=== PATIENT | male | born 1935 | race Caucasian/White ===

== ENCOUNTER 2018-05-20 18:11 | Emergency (ER) | payer MEDICARE, OTHER ==
[2018-05-20] MEDS: MORPHINE 4 MG/ML 1ML VIAL/SYRINGE (J2270) IV (19:15)
[2018-05-20 19:27] LABS: HEMATOCRIT 40.6 % (42.0-52.0); MEAN CORPUSCULAR HEMOGLOBIN 31.3 pg (27.0-33.0); MEAN CORPUSCULAR HGB CONC 34.5 g/dl (32.0-36.5); MEAN CORPUSCULAR VOLUME 90.6 fl (80.0-96.0); PLATELET COUNT, AUTOMATED 220 10^3/uL (150-450); RED BLOOD COUNT 4.48 10^6/uL (4.30-6.10)
[2018-05-20] MEDS: NS 1,000 ML IV (19:30)
[2018-05-20] MEDS: LIDOCAINE 1% MDV INJ 50 ML VIAL SC (19:45)
[2018-05-20 19:46] LABS: ANION GAP 7 MEQ/L (8-16); BLOOD UREA NITROGEN 18 MG/DL (7-18); CALCIUM LEVEL 8.1 MG/DL (8.8-10.2); CARBON DIOXIDE LEVEL 28 MEQ/L (21-32); CHLORIDE LEVEL 109 MEQ/L (98-107); CREATININE FOR GFR 1.15 MG/DL (0.70-1.30); GLOMERULAR FILTRATION RATE > 60.0 (>35); GLUCOSE, FASTING 109 MG/DL (70-100); POTASSIUM SERUM 3.4 MEQ/L (3.5-5.1); SODIUM LEVEL 144 MEQ/L (136-145)
[2018-05-20] MEDS ORDERED: LIDOCAINE 1% MDV 20ML VIAL As Ordered (19:56)
== END 2018-05-21 00:23 | disposition home or self-care (01) ==
LOC: M ED 05-21 00:23
DX: S52.531A Colles' fracture of right radius, initial encounter for closed fracture (principal); W10.8XXA Fall (on) (from) other stairs and steps, initial encounter; Y92.098 Other place in other non-institutional residence as the place of occurrence of the external cause; I10 Essential (primary) hypertension; K21.9 Gastro-esophageal reflux disease without esophagitis; E78.00 Pure hypercholesterolemia, unspecified; Z87.891 Personal history of nicotine dependence; Z79.899 Other long term (current) drug therapy
CPT/HCPCS: J2270

== ENCOUNTER 2019-03-18 00:06 | Emergency (ER) | payer MEDICARE, OTHER ==
[~2019-03-18] VITALS: Ht 170.2 cm; Wt 97.7 kg
[2019-03-18] MEDS ORDERED: NS 1,000 ML IV ONE (00:30)
[2019-03-18] MEDS ORDERED: METOCLOPRAMIDE INJ 10MG/2ML VIAL (J2765) IV ONE (00:30)
[2019-03-18 01:25] LABS: BASO % 0.2 % (0.0-1.0); EOS % 0.2 % (0.0-3.0); HEMATOCRIT 41.6 % (42.0-52.0); HEMOGLOBIN 14.3 g/dl (13.5-17.5); LYMPH # 0.5 10^3/uL (1.5-4.5); LYMPH % 4.4 % (24.0-44.0); MEAN CORPUSCULAR HEMOGLOBIN 31.6 pg (27.0-33.0); MEAN CORPUSCULAR HGB CONC 34.4 g/dl (32.0-36.5); MEAN CORPUSCULAR VOLUME 91.8 fl (80.0-96.0); MONO # 0.2 10^3/uL (0.0-0.8); MONO % 1.6 % (0.0-5.0); NEUTROPHILS % 93.3 % (36.0-66.0); PLATELET COUNT, AUTOMATED 185 10^3/uL (150-450); RED BLOOD COUNT 4.53 10^6/uL (4.30-6.10); WHITE BLOOD COUNT 11.8 10^3/uL (4.0-10.0)
[2019-03-18 01:42] LABS: ALBUMIN 3.4 GM/DL (3.2-5.2); ALT/SGPT 136 U/L (12-78); BILIRUBIN,DIRECT 1.1 MG/DL (0.0-0.2); BILIRUBIN,TOTAL 1.9 MG/DL (0.2-1.0); BLOOD UREA NITROGEN 20 MG/DL (7-18); CALCIUM LEVEL 8.2 MG/DL (8.8-10.2); CARBON DIOXIDE LEVEL 26 MEQ/L (21-32); CHLORIDE LEVEL 109 MEQ/L (98-107); CPK CREATINE PHOSPHOKINASE 160 U/L (39-308); CREATININE FOR GFR 1.34 MG/DL (0.70-1.30); GLOMERULAR FILTRATION RATE 54.2 (>35); GLUCOSE, FASTING 100 MG/DL (70-100); LIPASE 83 U/L (73-393); MB/CK RELATIVE INDEX 0.94 (< OR =4); POTASSIUM SERUM 3.5 MEQ/L (3.5-5.1); SODIUM LEVEL 145 MEQ/L (136-145); TOTAL PROTEIN 7.2 GM/DL (6.4-8.2); TROPONIN I < 0.02 NG/ML (< 0.10)
[2019-03-18 02:08] VITALS: BP 102/51
--- NOTE | 2019-03-18 03:10 | REPVR ---
EXAM: US Abdomen Limited, Right Upper Quadrant EXAM DATE/TIME: 03/18/2019 2:09 AM CLINICAL HISTORY: 84 years old, male; Abdominal pain; Epigastric; Additional info: Biliary eval TECHNIQUE: Imaging protocol: Real-time ultrasound of the abdomen with image documentation. Examination was focused on the right upper quadrant. COMPARISON: No relevant prior studies available. FINDINGS: Liver: The liver is mildly echogenic and is attenuating. Gallbladder: The gallbladder demonstrates no wall thickening measuring 3 mm. Internal gallstones and possible sludge are noted. There is a negative sono Dixon's sign. Common bile duct: The CBD measures 5 mm. Pancreas: The pancreas is not seen due to gas shadowing. Right kidney: The right kidney is normal measuring 10.1 cm. IMPRESSION: 1. Fatty infiltration of the liver. 2. Cholelithiasis and question of sludge. There is no gallbladder wall thickening and a negative sono Dixon's sign. Electronically signed by: Ruel Pierre On 03/18/2019 03:10:18 AM
== END 2019-03-18 03:41 | disposition home or self-care (01) ==
LOC: M ED 00:06
DX: K52.9 Noninfective gastroenteritis and colitis, unspecified (principal); E66.9 Obesity, unspecified; I10 Essential (primary) hypertension; K21.9 Gastro-esophageal reflux disease without esophagitis; K76.0 Fatty (change of) liver, not elsewhere classified; K80.20 Calculus of gallbladder without cholecystitis without obstruction
CPT/HCPCS: 36415; 76705; 80048; 80076; 82550; 82553; 83690; 84484; 85025; 99284; J2765

== ENCOUNTER 2020-02-18 02:49 | Emergency (ER) | payer MEDICARE, OTHER ==
[~2020-02-18] VITALS: Ht 170.2 cm; Wt 95.5 kg
[2020-02-18] MEDS ORDERED: METO1TAB7 PO (02:58)
[2020-02-18] MEDS ORDERED: HYDR25TAB PO (02:58)
[2020-02-18] MEDS ORDERED: AMLO25TA PO (02:58)
[2020-02-18] MEDS ORDERED: PRAV20TA2 PO (02:58)
[2020-02-18] MEDS ORDERED: OMEP-221 PO (02:58)
[2020-02-18] MEDS ORDERED: NON-325T5 PO (02:59)
[2020-02-18] MEDS ORDERED: NS 500 ML IV ONE (03:15)
[2020-02-18 03:29] LABS: BASO % 0.2 % (0.0-1.0); EOS # 0.2 10^3/uL (0.0-0.5); EOS % 0.9 % (0.0-3.0); HEMATOCRIT 40.3 % (42.0-52.0); HEMOGLOBIN 13.6 g/dl (13.5-17.5); LYMPH # 1.4 10^3/uL (1.5-5.0); LYMPH % 7.8 % (24.0-44.0); MEAN CORPUSCULAR HEMOGLOBIN 30.8 pg (27.0-33.0); MEAN CORPUSCULAR HGB CONC 33.7 g/dl (32.0-36.5); MEAN CORPUSCULAR VOLUME 91.4 fl (80.0-96.0); MONO # 0.9 10^3/uL (0.0-0.8); MONO % 4.9 % (0.0-5.0); NEUTROPHILS # 15.4 10^3/uL (1.5-8.5); NEUTROPHILS % 85.5 % (36.0-66.0); PLATELET COUNT, AUTOMATED 281 10^3/uL (150-450); RED BLOOD COUNT 4.41 10^6/uL (4.30-6.10)
[2020-02-18] MEDS ORDERED: ONDANSETRON 4MG/2ML VIAL (J2405) As Ordered ONE (03:41)
[2020-02-18] MEDS ORDERED: ONDANSETRON 4MG/2ML VIAL (J2405) IV ONE (03:45)
[2020-02-18] MEDS ORDERED: MORPHINE 2 MG/ML 1ML VIAL (J2270) IV ONE (03:45)
[2020-02-18 04:18] LABS: ALBUMIN 3.4 GM/DL (3.2-5.2); ALT/SGPT 226 U/L (12-78); BILIRUBIN,DIRECT 2.2 MG/DL (0.0-0.2); BILIRUBIN,TOTAL 2.6 MG/DL (0.2-1.0); BLOOD UREA NITROGEN 13 MG/DL (7-18); CALCIUM LEVEL 8.7 MG/DL (8.8-10.2); CARBON DIOXIDE LEVEL 26 MEQ/L (21-32); CHLORIDE LEVEL 103 MEQ/L (98-107); CK-MB VALUE MASS < 1.0 NG/ML (<3.6); CPK CREATINE PHOSPHOKINASE 52 U/L (39-308); CREATININE FOR GFR 1.14 MG/DL (0.70-1.30); GLOMERULAR FILTRATION RATE > 60.0 (>35); GLUCOSE, FASTING 169 MG/DL (70-100); LIPASE 101 U/L (73-393); MB/CK RELATIVE INDEX 1.92 (< OR =4); POTASSIUM SERUM 2.8 MEQ/L (3.5-5.1); SODIUM LEVEL 138 MEQ/L (136-145); TOTAL PROTEIN 7.5 GM/DL (6.4-8.2); TROPONIN I < 0.02 NG/ML (< 0.10)
[2020-02-18] MEDS ORDERED: POTASSIUM CHLORIDE 10 MEQ SR TABLET PO ONE (04:30)
[2020-02-18] MEDS ORDERED: KCL 10MEQ/100ML SWI (KRUN) 10 MEQ in IV 1 EA IV ONE (04:30)
[2020-02-18] MEDS ORDERED: NS 1,000 ML IV ONE (04:30)
[2020-02-18] MEDS ORDERED: ISOVUE-370 76% 100ML VIAL (Q9967) As Ordered ONE (04:33)
[2020-02-18 04:55] LABS: APPEARANCE, URINE CLEAR (CLEAR); BACTERIA, URINE AUTO NEGATIVE (NEGATIVE); BILIRUBIN, URINE AUTO NEGATIVE (NEGATIVE); BLOOD, URINE BLOOD 1+ (NEGATIVE); COLOR, URINE YELLOW (YELLOW); GLUCOSE, URINE (UA) AUTO NEGATIVE (NEGATIVE); KETONE, URINE AUTO NEGATIVE (NEGATIVE); LEUKOCYTE ESTERASE, URINE AUTO NEGATIVE (NEGATIVE); NITRITE, URINE AUTO NEGATIVE (NEGATIVE); PROTEIN, URINE AUTO NEGATIVE (NEGATIVE); RBC, URINE AUTO 3 /HPF (0-3); SPECIFIC GRAVITY URINE AUTO 1.012 (1.002-1.035); SQUAMOUS EPITHELIAL CELL UR AU 0 /HPF (0-6); WBC, URINE AUTO 2 /HPF (0-3)
--- NOTE | 2020-02-18 05:20 | REPVR ---
PROCEDURE INFORMATION: Exam: CT Abdomen And Pelvis With Contrast Exam date and time: 02/18/2020 4:53 AM Age: 85 years old Clinical indication: Abdominal pain TECHNIQUE: Imaging protocol: Computed tomography of the abdomen and pelvis with intravenous contrast. Radiation optimization: All CT scans at this facility use at least one of these dose optimization techniques: automated exposure control; mA and/or kV adjustment per patient size (includes targeted exams where dose is matched to clinical indication); or iterative reconstruction. Contrast material: ISO 370; Contrast volume: 100 ml; Contrast route: IV; COMPARISON: No relevant prior studies available. FINDINGS: Lungs: Bibasilar atelectasis. Mediastinum: Moderate hiatal hernia. Liver: Normal. No mass. Gallbladder and bile ducts: Distended gallbladder with multiple gallstones. Minimal edema surrounding the gallbladder Stones in the neck of the gallbladder. Suggestion of stones in the CBD and 1 at the tip of the CBD measuring 4.4 mm at the opening of the sphincter of old deep. CBD is dilated measuring up to 10 mm. Findings are concerning for acute cholecystitis. Pancreas: Normal. No ductal dilation. Spleen: Normal. No splenomegaly. Adrenals: Normal. No mass. Kidneys and ureters: Simple cyst in the interpolar region of the left kidney measuring up to 14.5 mm. Right kidney is unremarkable. Stomach and bowel: Diverticulosis without any CT evidence of diverticulitis. Appendix: No evidence of appendicitis. Intraperitoneal space: Unremarkable. No free air. No significant fluid collection. Vasculature: Atherosclerosis of the aorta and its branches. Lymph nodes: Unremarkable. No enlarged lymph nodes. Bladder: Unremarkable as visualized. Reproductive: Prostate is enlarged with calcification causing indentation on the bladder base. Restricted is measuring 42 x 53 mm. Bones/joints: Diffuse demineralization of the bones with degenerative changes. Soft tissues: Fat containing bilateral inguinal hernias. IMPRESSION: Distended gallbladder with multiple gallstones. Minimal edema surrounding the gallbladder Stones in the neck of the gallbladder. Suggestion of stones in the CBD and 1 at the tip of the CBD measuring 4.4 mm at the opening of the sphincter of old deep. CBD is dilated measuring up to 10 mm. Findings are concerning for acute cholecystitis. COMMENTS: Consistent with the [employer]'s Incidental Findings Committee white paper (J Am Jarrell Radiol 2018): Any incidental cystic renal lesion classified in this report as too small to characterize or simple appearing is likely a benign cyst. No follow-up imaging is recommended for these lesions per consensus recommendations based on imaging criteria. Electronically signed by: Mony Kim On 02/18/2020 05:20:25 AM
[2020-02-18] MEDS ORDERED: cefTRIAXone SOD 2 GM in D5W MINI-BAG PLUS 50 ML IV ONE (05:30)
[2020-02-18] MEDS ORDERED: IBUPROFEN 600 MG TAB PO ONE (07:30)
[2020-02-18 09:15] VITALS: BP 113/56
--- NOTE | 2020-02-19 09:05 | ECGEPIP ---
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
== END 2020-02-18 09:20 | disposition short-term general hospital (02) ==
LOC: M ED 02:49
DX: K80.40 Calculus of bile duct with cholecystitis, unspecified, without obstruction (principal); I10 Essential (primary) hypertension; E78.5 Hyperlipidemia, unspecified; K21.9 Gastro-esophageal reflux disease without esophagitis; G89.29 Other chronic pain; M54.5 Low back pain; Z79.899 Other long term (current) drug therapy; Z87.891 Personal history of nicotine dependence
CPT/HCPCS: 74177; 80048; 80076; 81001; 82550; 82553; 83605; 83690; 84484; 85025; 93005; 96361; 96365; 96368; 96375; 99285; J0696; J2270; J2405; Q9967

== ENCOUNTER 2023-04-27 19:52 | Inpatient (IN) | payer MEDICARE, OTHER ==
[~2023-04-27] VITALS: Ht 170.2 cm; Wt 89.1 kg
[~2023-04-27 19:52] MED LIST: ACET32TAB PO; AMLO25TA PO; HYDR-3490 PO; METO1TAB7 PO; OMEP40CA5 PO; PRAV20TA2 PO
[2023-04-27] MEDS ORDERED: FLOM0.4C39 PO (20:01)
[2023-04-27] MEDS ORDERED: ACETAMINOPHEN TAB 650MG DOSE (2X325MG) PO ONE (20:45)
[2023-04-27 21:03] LABS: BASO % 0.2 % (0.0-1.0); HEMATOCRIT 38.1 % (42.0-52.0); HEMOGLOBIN 13.3 g/dl (13.5-17.5); LYMPH # 0.8 10^3/uL (1.5-5.0); LYMPH % 6.2 % (24.0-44.0); MEAN CORPUSCULAR HEMOGLOBIN 31.5 pg (27.0-33.0); MEAN CORPUSCULAR HGB CONC 34.9 g/dl (32.0-36.5); MEAN CORPUSCULAR VOLUME 90.3 fl (80.0-96.0); MONO # 1.4 10^3/uL (0.0-0.8); MONO % 10.9 % (2.0-8.0); NEUTROPHILS # 10.8 10^3/uL (1.5-8.5); NEUTROPHILS % 82.2 % (36.0-66.0); PLATELET COUNT, AUTOMATED 210 10^3/uL (150-450); RED BLOOD COUNT 4.22 10^6/uL (4.30-6.10); WHITE BLOOD COUNT 13.2 10^3/uL (4.0-10.0)
[2023-04-27 21:32] LABS: CK-MB VALUE MASS < 1.0 NG/ML (<3.6)
[2023-04-27 21:35] LABS: ALBUMIN 3.3 G/DL (3.2-5.2); ALKALINE PHOSPHATASE 54 U/L (46-116); ALT/SGPT 12 U/L (7.0-40); AST/SGOT < 8 U/L (<34); BILIRUBIN,DIRECT 0.3 MG/DL (<0.4); BILIRUBIN,TOTAL 0.7 MG/DL (0.3-1.2); BLOOD UREA NITROGEN 14 MG/DL (9-23); CALCIUM LEVEL 8.1 MG/DL (8.3-10.6); CARBON DIOXIDE LEVEL 23 MMOL/L (20-31); CHLORIDE LEVEL 100 MMOL/L (98-107); CPK CREATINE PHOSPHOKINASE 49 U/L (46-171); CREATININE FOR GFR 1.04 MG/DL (0.70-1.30); GLOMERULAR FILTRATION RATE > 60.0 (>35); GLUCOSE, FASTING 113 MG/DL (74-106); MB/CK RELATIVE INDEX 2.04 (< OR =4); POTASSIUM SERUM 3.1 MMOL/L (3.5-5.1); SODIUM LEVEL 134 MMOL/L (136-145); TOTAL PROTEIN 6.8 G/DL (5.7-8.2)
[2023-04-27 21:36] LABS: THYROID STIMULATING HORMONE 2.565 uIU/ML (0.55-4.78)
[2023-04-27] MEDS ORDERED: cefTRIAXone SOD 1 GM in D5W MINI-BAG PLUS 50 ML IV ONE ×2 (21:40→22:40)
[2023-04-27] MEDS ORDERED: POTASSIUM CHLORIDE 10MEQ SR TABLET PO ONE (22:25)
[2023-04-27] MEDS ORDERED: ACETAMINOPHEN TAB 650MG DOSE (2X325MG) PO PRN (23:10)
[2023-04-27] MEDS ORDERED: LR 1,000 ML IV ONE (23:10)
[2023-04-27] MEDS ORDERED: ISOVUE-370 76% 100ML VIAL As Ordered ONE (23:14)
[2023-04-27] MEDS ORDERED: DOXYCYCLINE HYCLATE 100MG TABLET PO ONE (23:55)
[2023-04-28 01:11] VITALS: BP 118/86; TEMP 98.4; O2SAT 97
[2023-04-28] MEDS: LR 1,000 ML IV SCH ×2 (01:23→06:57)
[2023-04-28 05:00] VITALS: BP 136/52; TEMP 99.5; O2SAT 92
[2023-04-28 06:01] LABS: HEMATOCRIT 34.6 % (42.0-52.0); MEAN CORPUSCULAR HEMOGLOBIN 31.3 pg (27.0-33.0); MEAN CORPUSCULAR HGB CONC 34.7 g/dl (32.0-36.5); MEAN CORPUSCULAR VOLUME 90.1 fl (80.0-96.0); PLATELET COUNT, AUTOMATED 175 10^3/uL (150-450); RED BLOOD COUNT 3.84 10^6/uL (4.30-6.10); WHITE BLOOD COUNT 10.5 10^3/uL (4.0-10.0)
[2023-04-28 06:20] LABS: BLOOD UREA NITROGEN 16 MG/DL (9-23); CALCIUM LEVEL 8.3 MG/DL (8.3-10.6); CARBON DIOXIDE LEVEL 26 MMOL/L (20-31); CHLORIDE LEVEL 101 MMOL/L (98-107); CREATININE FOR GFR 1.03 MG/DL (0.70-1.30); GLOMERULAR FILTRATION RATE > 60.0 (>35); GLUCOSE, FASTING 95 MG/DL (74-106); MAGNESIUM LEVEL 1.5 MG/DL (1.8-2.4); POTASSIUM SERUM 3.3 MMOL/L (3.5-5.1); SODIUM LEVEL 134 MMOL/L (136-145)
[2023-04-28 06:31] LABS: PROCALCITONIN 0.17 ng/ml
[2023-04-28] MEDS ORDERED: POTASSIUM CHLORIDE 10MEQ SR TABLET PO ONE (09:00)
[2023-04-28] MEDS ORDERED: MAGNESIUM OXIDE 400MG TAB (MAG-OX) PO ONE (09:00)
[2023-04-28] MEDS: DOXYCYCLINE HYCLATE 100MG TABLET PO SCH ×2 (09:04→20:30)
[2023-04-28] MEDS: guaiFENesin ER 600 MG TAB PO SCH ×2 (09:04→20:30)
[2023-04-28] MEDS: ENOXAPARIN 40MG/0.4ML SYRINGE (J1650 PER 10MG) SC SCH (09:04)
[2023-04-28 10:37] VITALS: BP_SYST 111; BP_SYST 113; BP_SYST 120; BP_DIAS 47; BP_DIAS 53; BP_DIAS 54
[2023-04-28 14:00] VITALS: BP 128/64; TEMP 98.2; O2SAT 95
[2023-04-28] MEDS ORDERED: MED REC COMMENT (14:46)
[2023-04-28] MEDS ORDERED: TAMSULOSIN 0.4 MG CAP PO SCH (21:00)
[2023-04-28] MEDS ORDERED: cefTRIAXone SOD 2 GM in D5W MINI-BAG PLUS 50 ML IV SCH (21:00)
[2023-04-28 21:35] VITALS: BP 131/64; TEMP 98.1; O2SAT 93
[2023-04-29 04:32] LABS: BASO % 0.2 % (0.0-1.0); EOS # 0.2 10^3/uL (0.0-0.5); EOS % 2.7 % (0.0-3.0); HEMATOCRIT 34.8 % (42.0-52.0); HEMOGLOBIN 11.9 g/dl (13.5-17.5); LYMPH # 1.3 10^3/uL (1.5-5.0); LYMPH % 15.7 % (24.0-44.0); MEAN CORPUSCULAR HEMOGLOBIN 31.2 pg (27.0-33.0); MEAN CORPUSCULAR HGB CONC 34.2 g/dl (32.0-36.5); MEAN CORPUSCULAR VOLUME 91.3 fl (80.0-96.0); MONO # 1.1 10^3/uL (0.0-0.8); MONO % 13.3 % (2.0-8.0); NEUTROPHILS # 5.5 10^3/uL (1.5-8.5); NEUTROPHILS % 67.5 % (36.0-66.0); PLATELET COUNT, AUTOMATED 174 10^3/uL (150-450); RED BLOOD COUNT 3.81 10^6/uL (4.30-6.10); WHITE BLOOD COUNT 8.1 10^3/uL (4.0-10.0)
[2023-04-29 05:07] LABS: ALBUMIN 2.8 G/DL (3.2-5.2); ALKALINE PHOSPHATASE 46 U/L (46-116); ALT/SGPT 18 U/L (7.0-40); AST/SGOT 20 U/L (<34); BILIRUBIN,TOTAL 0.4 MG/DL (0.3-1.2); BLOOD UREA NITROGEN 15 MG/DL (9-23); CARBON DIOXIDE LEVEL 25 MMOL/L (20-31); CHLORIDE LEVEL 105 MMOL/L (98-107); CREATININE FOR GFR 0.92 MG/DL (0.70-1.30); GLOMERULAR FILTRATION RATE > 60.0 (>35); GLUCOSE, FASTING 95 MG/DL (74-106); MAGNESIUM LEVEL 1.7 MG/DL (1.8-2.4); POTASSIUM SERUM 3.9 MMOL/L (3.5-5.1); SODIUM LEVEL 137 MMOL/L (136-145)
[2023-04-29 05:42] VITALS: BP 127/61; TEMP 98.8; O2SAT 95
[2023-04-29] MEDS ORDERED: MAGNESIUM OXIDE 400MG TAB (MAG-OX) PO ONE (08:00)
[2023-04-29] MEDS ORDERED: METOPROLOL SUCC (TopROL XL) 50MG **XL** TAB PO SCH (09:00)
[2023-04-29] MEDS ORDERED: PRAVASTATIN 20 MG TAB PO SCH (09:00)
[2023-04-29] MEDS: guaiFENesin ER 600 MG TAB PO SCH (09:05)
[2023-04-29] MEDS: DOXYCYCLINE HYCLATE 100MG TABLET PO SCH (09:05)
[2023-04-29 09:06] VITALS: BP 112/60
[2023-04-29] MEDS ORDERED: DOXY100T PO (09:06)
[2023-04-29] MEDS ORDERED: LEVO1TAB40 PO (09:06)
[2023-04-29] MEDS: ENOXAPARIN 40MG/0.4ML SYRINGE (J1650 PER 10MG) SC SCH (09:06)
[2023-04-29 17:07] LABS: MYCOPLASMA PNEUMONIAE IgG 729 U/mL (0-99); MYCOPLASMA PNEUMONIAE IgM <770 U/mL (0-769)
== END 2023-04-29 14:45 | disposition home or self-care (01) | DRG 871 ==
LOC: M ED 19:52 → M ED INP 23:06 → ENRESERV 04-28 00:35 → M MSPAV 04-28 01:06
PROVIDERS: ADMIT Internal Medicine; ATTEND Family Medicine
DX: A41.9 Sepsis, unspecified organism (principal); J18.9 Pneumonia, unspecified organism; G93.41 Metabolic encephalopathy; N39.0 Urinary tract infection, site not specified; I10 Essential (primary) hypertension; E78.5 Hyperlipidemia, unspecified; D64.9 Anemia, unspecified; N40.0 Benign prostatic hyperplasia without lower urinary tract symptoms; K21.9 Gastro-esophageal reflux disease without esophagitis; R26.89 Other abnormalities of gait and mobility; Z90.49 Acquired absence of other specified parts of digestive tract; E87.6 Hypokalemia; Z20.822 Contact with and (suspected) exposure to COVID-19; Z79.899 Other long term (current) drug therapy; Z87.891 Personal history of nicotine dependence

== ENCOUNTER 2025-07-19 09:39 | Emergency (ER) | payer MEDICARE, OTHER ==
[~2025-07-19] VITALS: Ht 170.2 cm; Wt 85.7 kg
[~2025-07-19 09:39] MED LIST changes: +DOXY100T PO; +LEVO1TAB40 PO; +MED REC COMMENT; -PRAV20TA2 PO; +PRAV20TA78 PO; +TAMS-18 PO
[2025-07-19 10:43] LABS: BASO # 0.0 10^3/uL (0.0-0.2); BASO % 0.2 % (0.0-1.0); EOS # 0.1 10^3/uL (0.0-0.5); EOS % 1.0 % (0.0-3.0); LYMPH # 1.2 10^3/uL (1.5-5.0); LYMPH % 12.9 % (24.0-44.0); MONO # 0.8 10^3/uL (0.0-0.8); MONO % 8.9 % (2.0-8.0); NEUTROPHILS # 7.1 10^3/uL (1.5-8.5); NEUTROPHILS % 76.7 % (36.0-66.0); PLATELET COUNT, AUTOMATED 232 10^3/uL (150-450)
[2025-07-19 11:20] LABS: ALT/SGPT 16.0 U/L (7.0-40); AST/SGOT 23.0 U/L (<34); CALCIUM LEVEL 9.2 MG/DL (8.3-10.6); CARBON DIOXIDE LEVEL 26.0 MMOL/L (20-31); CHLORIDE LEVEL 103.0 MMOL/L (98-107); CREATININE FOR GFR 1.2 MG/DL (0.70-1.30); GLOMERULAR FILTRATION RATE 57.8 (>35); POTASSIUM SERUM 3.4 MMOL/L (3.5-5.1); SODIUM LEVEL 141.0 MMOL/L (136-145)
[2025-07-19 11:26] LABS: KETONE, URINE AUTO RFX NEGATIVE (NEGATIVE); MUCUS, URINE RFX SMALL (NEGATIVE); NITRITE, URINE AUTO RFX NEGATIVE (NEGATIVE); RBC, URINE AUTO RFX 43 /HPF (0-3); SQUAM EPITHELIAL CELL UR AURFX 0 /HPF (0-6)
[2025-07-19 11:27] LABS: LEUKOCYTE ESTERASE UR AUTO RFX 2+ (NEGATIVE); WBC, URINE AUTO RFX TNTC /HPF (0-3)
[2025-07-19] MEDS: POTASSIUM CHLORIDE 10MEQ SR TABLET PO ONE (11:43)
[2025-07-19] MEDS ORDERED: PHEN-372 PO (12:18)
[2025-07-19] MEDS ORDERED: SULF1TAB23 PO (12:18)
[2025-07-19 12:23] VITALS: BP 126/61; TEMP 97.3; O2SAT 97
== END 2025-07-19 12:39 | disposition home or self-care (01) ==
LOC: M ED 09:39
DX: N39.0 Urinary tract infection, site not specified (principal); K21.9 Gastro-esophageal reflux disease without esophagitis; I10 Essential (primary) hypertension; N40.0 Benign prostatic hyperplasia without lower urinary tract symptoms; Z79.1 Long term (current) use of non-steroidal anti-inflammatories (NSAID); Z79.2 Long term (current) use of antibiotics; Z79.899 Other long term (current) drug therapy